=== PATIENT | male | born 1970 | race Caucasian/White ===

== ENCOUNTER → 2018-03-26 | Outpatient (CLI) | payer OTHER ==
[~2018-03-26] VITALS: Ht 185.4 cm; Wt 102.1 kg
[~2018-03-26] MED LIST: NEXIUM20 MG PO; ZANTAC150 MG PO
== END | disposition home or self-care (01) ==
LOC: AMB 11:45
PROC: 0DB68ZX Excision of Stomach, Via Natural or Artificial Opening Endoscopic, Diagnostic (ICD-10-PCS; principal; 2018-03-26)
DX: K29.70 Gastritis, unspecified, without bleeding (principal)
CPT/HCPCS: 88305; 88342 TC; J2405